=== PATIENT | female | born 1955 | race African-American/Black ===

== ENCOUNTER → 2016-11-16 | Day surgery (SDC) | payer BC ==
[~2016-11-16] MED LIST: AMLO5TAB96 PO; BUPIVACAINE/EPINEPHRINE 0.25% 50 ML VIAL ONE; CLOR1TAB21 PO; HYDR-2768 PO; LACTATED RINGER'S 1000 ML INJ 1,000 ML ONE; LAMI250T PO; LIDOCAINE 1%/EPINEPHrine 1:100,000 SOLN 20 ML VIAL ONE; MIDAZOLAM HCL 2 MG/2 ML VIAL ONE; PROPOFOL 500 MG/50 ML BTL IV ONE; SODIUM CHLOR 0.9% 250 ML BAG IV ONE; SYNT25TA PO; VANCOMYCIN HCL 1000 MG VIAL ONE
--- NOTE | 2016-11-21 13:33 | MP ---
cc: ARGELIA BURKS M.D.DAYNA [facility] DATE OF SURGERY: 11/16/2016 PROCEDURE 1. Excision previously infected epidermal inclusion cyst, 2 x 3 cm, left inframammary fold. 2. Excision epidermal inclusion cyst, left mid back, 1 x 1 cm. PROCEDURE IN DETAIL The patient was seen in the holding area and both sites marked by the undersigned and confirmed by the patient. She was taken to the operating room and placed on the operating table in the supine position initially. The left inframammary region was sterilely prepped and draped. The patient was given IV anesthesia. A timeout was taken confirming the correct patient, site and procedures to be performed. The skin and subcutaneous tissue was infiltrated with local anesthetic. An elliptical incision was made in the left inframammary fold directly over the lesion. Dissection was carried out to include the entire lesion and it was completely excised including scar tissue and inflammatory indurated tissue. The specimen was completely excised down through and including subcutaneous tissue. The wound was made hemostatic with electrocautery and then closed with interrupted 3-0 Vicryl suture. The wound was dressed with Steri-Strips and attention then turned to the left mid back. The patient was lifted over into a somewhat lateral position and the back was sprayed with Betadine. This was toweled off, injected with local anesthetic and an ellipse made around the 1 x 1 cm epidermal inclusion cyst on the back. Dissection was carried down into and through the subcutaneous tissues as it had been on the inframammary fold lesion. When this had been completed the specimen was passed off the table. The wound was made hemostatic with electrocautery and then closed in two layers with interrupted 3-0 Vicryl suture and Steri-Strips. The patient was awakened and taken back to the recovery room in stable condition. Sponge and needle counts were reported to be correct. MD ORESTES Moreira/LISS /11:58 PM /1:28 PM [facility]
== END | disposition home or self-care (01) ==
LOC: ESDC 13:46
PROVIDERS: ATTEND Surgery Trauma Surgery
DX: L72.0 Epidermal cyst (principal)
CPT/HCPCS: 00300; 00400; 11601; 11603; 12031; 88304; J2250; J3010; J3370; J7050; J7120